=== PATIENT | female | born 1970 | race African-American/Black ===

== ENCOUNTER 2019-12-11 07:00 | Day surgery (SDC) | payer OTHER ==
[2019-12-11] VITALS (11 sets, daily range): BP systolic 91–155; BP diastolic 58–116
[~2019-12-11] VITALS: Ht 160 cm; Wt 91.6 kg
[~2019-12-11 07:00] MED LIST: ASPIRIN81 MG ORAL; HYDROCHLOROTHIA25 MG ORAL; NORVASC10 MG ORAL; PERCOCET 2.5-31 EACH ORAL; ceFAZolin 1gm IVPB IVPB ONE; celeBREX 200mg Cap **SURGERY PATIENTS ONLY ORAL ONE; oxyCONTIN 10mg tab ORAL ONE
[2019-12-11] MEDS ORDERED: NS Irrig 1000ml ONE (07:01)
[2019-12-11] MEDS ORDERED: LR 1000ml ONE (07:01)
[2019-12-11] MEDS ORDERED: NS Irrig 2000ml IRRIG ONE (07:01)
--- NOTE | 2019-12-11 07:05 | Pre-Procedure Note/Attestation ---
Pre-Procedure Note/Attestation Complete Prior to Procedure Planned Procedure: right Procedure Narrative: rt knee scope acl reconstruction Indications for Procedure Pre-Operative Diagnosis: rt knee acl tear Attestation I attest that I discussed the nature of the procedure; its benefits; risks and complications; and alternatives (and the risks and benefits of such alternatives ), prior to the procedure, with the patient (or the patient's legal medical field representative). I attest that, if there was a reasonable possibility of needing a blood transfusion, the patient (or the patient's legal medical field representative) was given the [facility] standardized written summary, pursuant to the Christophe Tamara Blood Safety Act ([place] Health and Safety Code # 1645, as amended). I attest that I re-evaluated the patient just prior to the surgery and that there has been no change in the patient's H&P, except as documented below: none Jerald Silvestre MD Dec 11, 2019 07:05
[2019-12-11] MEDS ORDERED: HYDROcodone/Acetamin 5/325 tab ORAL PRN (07:15)
[2019-12-11] MEDS ORDERED: HYDROmorphone 1mg/ml Carpuject SUBQ PRN (07:15)
[2019-12-11] MEDS ORDERED: Tylenol #3 tab (300mg/30mg) ORAL PRN (07:15)
[2019-12-11] MEDS ORDERED: Midazolam 2mg/2ml Inj ONE ×2 (07:23→08:43)
[2019-12-11] MEDS ORDERED: fentaNYL 100 mcg/2 mL IV ONE (07:23)
[2019-12-11] MEDS ORDERED: Bupivacaine 0.25% Inj 30ml INJ ONE (07:35)
[2019-12-11] MEDS ORDERED: fentaNYL 100 mcg/2 mL IV PRN (07:45)
[2019-12-11] MEDS ORDERED: Bacitracin 50000 Units Vial ONE (07:57)
[2019-12-11] MEDS ORDERED: Bupivacaine w/Epi 0.5% 30ml Vial INJ ONE (07:57)
[2019-12-11] MEDS ORDERED: EPINEPHrine 1mg/1ml Amp ONE (08:05)
[2019-12-11] MEDS ORDERED: Lidocaine 1% Plain 30 ml INJ ONE (08:30)
[2019-12-11] MEDS ORDERED: Acetaminophen (Non formulary) 100 ML IV ONE (09:15)
--- NOTE | 2019-12-11 10:01 | Anethesia Preoperative Eval ---
Anesthesia Pre-op PMH/ROS General Date of Evaluation: Dec 11, 2019 Time of Evaluation: 09:00 Anesthesiologist: fatimah ASA Score: ASA 3 Mallampati Score Class I : Soft palate, uvula, fauces, pillars visible Class II: Soft palate, uvula, fauces visible Class III: Soft palate, base of uvula visible Class IV: Only hard plate visible Mallampati Classification: Class III Surgeon: Konrad Diagnosis: Right knee pain Surgical Procedure: ACL repair Anesthesia History: none Social History: smoking, current smoker Family History: no anesthesia problems Allergies: Coded Allergies: No Known Allergies (Unverified , 12/07/19) Medications: see eMAR Patient NPO?: Yes NPO Date: Dec 11, 2019 NPO Time: 00:01 Past Medical History Cardiovascular: Reports: HTN Pulmonary: Denies: asthma, COPD, SUZAN, other Gastrointestinal/Genitourinary: Denies: GERD, CRI, ESRD, other Neurologic/Psychiatric: Reports: depression/anxiety; Denies: dementia, CVA, TIA, other Endocrine: Denies: DM, hypothyroidism, steroids, other HEENT: Denies: cataract (L), cataract (R), glaucoma, RENO-SPARKS (L), RENO-SPARKS (R), other Hematology/Immune: Denies: anemia, DVT, bleeding disorder, other Musculoskeletal/Integumentary: Reports: OA Other: obesity Anesthesia Pre-op Phys. Exam Physician Exam Last Vital Signs Date Time Temp Pulse Resp B/P (MAP) Pulse Ox O2 Delivery O2 Flow Rate FiO2 12/11/19 08:16 Room Air 12/11/19 07:48 98.0 78 18 139/87 97 Constitutional: NAD Neurologic: CN 2-12 intact Cardiovascular: RRR Respiratory: CTA Gastrointestinal: S/NT/ND Airway Exam Mallampati Classification 3 Mallampati Score: Class III MO: full Neck: thick ROM: full Dentures: no upper, no lower Anesthesia Pre-op A/P Labs Urine Test Test 12/11/19 07:15 Urine HCG, Qualitative Negative (NEGATIVE) Studies Pre-op Studies: EKG - SR Risk Assessment & Plan Plan: General Status Change Before Surgery: No Pre-Antibiotics Drug: ancef Given Within 1 Hr of Incision: Yes Time Given: 08:45 Chela Taylor CRNA Dec 11, 2019 10:01
[2019-12-11] MEDS ORDERED: Metoclopramide 10mg/2ml Inj ONE (10:15)
[2019-12-11] MEDS ORDERED: Ropivacaine 5mg/ml Vial 20ml INJ ONE (10:15)
[2019-12-11] MEDS ORDERED: Ketorolac 30mg Inj ONE (10:15)
[2019-12-11] MEDS ORDERED: Labetalol 5mg/ml 20ml vial IV PRN (10:15)
[2019-12-11] MEDS ORDERED: DiphenhydrAMINE 50mg/ml Inj IVP PRN (10:15)
[2019-12-11] MEDS ORDERED: Lidocaine 1% MPF 10mg/ml 5ml ONE (10:15)
[2019-12-11] MEDS ORDERED: Hydromorphone 0.5mg/0.5ml inj IVP PRN (10:15)
--- NOTE | 2019-12-11 10:41 | Brief Operative Note ---
Immediate Post Operative Note Operative Note Chief Complaint: rt knee pain Pre-op Diagnosis: rt knee acl tear Procedure: rt knee scope, acl reconstruction Post-op Diagnosis: same as pre-op Findings: consistent w/pre-op dx studies Surgeon: MD angelika Thread Pulling Machine Attendant: isabel Issa Anesthesiologist: md rubén Anesthesia: general Specimen: none Complications: none Condition: stable Fluids: ns Estimated Blood Loss: minimal Drains: none Implant(s) used?: Yes - biomet Lexii Issa Dec 11, 2019 10:41
--- NOTE | 2019-12-11 10:56 | Immediate Post-Op Evaluation ---
Immediate Post-Op Evalulation Immediate Post-Op Evalulation Procedure: ACL Repair Date of Evaluation: Dec 11, 2019 Time of Evaluation: 10:55 IV Fluids: 600 Blood Pressure Systolic: 140 Blood Pressure Diastolic: 50 Pulse Rate: 70 Respiratory Rate: 14 O2 Sat by Pulse Oximetry: 98 Nausea: No Vomiting: No Patient Status: awake, reacts, patent Hydration Status: adequate Drug: ancef Given Within 1 Hr of Incision: Yes Time Given: 08:45 Chela Taylor CRNA Dec 11, 2019 10:56
--- NOTE | 2019-12-11 12:37 | 48 Hour Post Anesthesia Eval ---
Post Anesthesia Evaluation Procedure: ACL Repair Date of Evaluation: Dec 11, 2019 Time of Evaluation: 12:37 Blood Pressure Systolic: 111 0: 74 Pulse Rate: 70 Respiratory Rate: 14 O2 Sat by Pulse Oximetry: 98 Airway: patent Nausea: No Vomiting: No Hydration Status: adequate Mental Status/LOC: patient returned to baseline Follow-up Care/Observations: none Post-Anesthesia Complications: none Follow-up care needed: N/A Chela Taylor CRNA Dec 11, 2019 12:37
[2019-12-11] MEDS ORDERED: D5 1/2NS 1,000 ML IV SCH (15:00)
--- NOTE | 2019-12-11 20:15 | Operative Note - Dictated ---
DATE OF OPERATION: 12/11/2019 PREOPERATIVE DIAGNOSIS: Right knee complete ACL tear. POSTOPERATIVE DIAGNOSIS: Right knee complete ACL tear with attachment onto the PCL for instability. PROCEDURE: 1. Right knee arthroscopy and extensive intra-articular shaving. 2. Right knee ACL reconstruction with tibialis anterior allograft, 10 mm graft with ToggleLoc femoral fixation and 10 mm AperFix tibial fixation. SURGEON: Jerald Silvestre MD. CT MRI TECHNOLOGIST: Lexii Issa PA-C. Physician Assistant Primary Care was present during the actual operative portion of the case and was important and essential part of the operation. During the operation, the child and youth program assistant held and operated the arthroscopic camera for visualization, assisted by manipulating the leg to help with visualization, and helped with essential parts of the repair process as necessary such as operating surgical instruments under surgeon supervision, suture management, and wound closures. ANESTHESIOLOGIST: Chela Taylor CRNA. ANESTHESIA: General endotracheal anesthesia. TOURNIQUET TIME: 50 minutes. ESTIMATED BLOOD LOSS: Minimal. COMPLICATIONS: None. SURGICAL INDICATION: Patient is a 49-year-old female who sustained the above injury to her knee. The patient was treated non-operative initially, but this did not alleviate the patients symptoms. Therefore, after discussing all non-surgical and surgical options, and discussing all foreseeable risk and benefits of surgery, the patient opted for surgical treatment as described above. PATIENT POSITIONING: Patient was brought to the operating room table and placed supine. All pressure points were well padded. General Anesthesia was induced and a well padded tourniquet was placed on the thigh. The lateral post was placed and positioned to allow for opening of the medial compartment of the knee without placing pressure over the fibular head. Patients entire leg was prepped and draped in the usual sterile fashion. Time out was performed and preop abx was given and after exsanguinating the lower extremity, the tourniquet was inflated to 275 mm of mercury. EXAMINATION OF THE KNEE UNDER ANESTHESIA: Before prepping and draping the knee and while the patient was relaxed under general anesthesia, the knee was examined for ROM, and anterior and posterior, medial and lateral, posterolateral, and posteromedial instability. Pivot shift testing was performed. There was no evidence of loss of motion, but there was instability with anterior drawer testing and Pivot shift testing. PORTAL PLACEMENT: The lateral portal was placed with the knee flexed to 90 degrees at the level of inferior border of the patella in line with the lateral border of the patella. A cm skin incision was made with an eleven blade, and using a blunt obturator, the capsule was gently penetrated. Sterile saline solution was then infused inside the knee with the aid of a pump set at 35 mm mercury pressure. Under direct visualization, placement of the medial portal was preliminary judged using a spinal needle, and it was subsequently established using the same technique as the lateral portal. Care was given not to injure the cutaneous branches of the medial Saphenous nerve or the subcutaneous veins. DIAGNOSTIC ARTHROSCOPY: The suprapatellar patellar pouch was visualized. There was no evidence of scar tissue or loose fragments. The medial and lateral patellar facets and trochlear groove articular cartilage was visualized. These structures were intact and were devoid of any articular cartilage damage. The medial plica shelf and the corresponding medial femoral condyle articular cartilage were visualized. There was no significantly thickening of the medial plica shelf and there were no kissing? lesion over the medial femoral condyle. The lateral gutter and the posterolateral corner of the knee were visualized. There were no loose bodies, and the popliteus tendon and other structures of the posterolateral corner of the knee were intact intra-articularly. At this point, the knee was placed in the figure of four position and the lateral compartment was entered. The lateral femoral condyle, lateral tibial plateau, and the anterior, body, and the posterior horn of the lateral meniscus were visualized and probed. The articular surfaces were intact and devoid of articular cartilage damage. The lateral meniscus was completely intact both on its undersurface and on the top. The knee was then placed at 90 degree and the ACL and PCL were visualized and probed. There was a complete tear of ACL and it was attached partially to the PCL. There was some scar tissue in the lateral wall, but there was no attachment of the ACL to the lateral wall. The PCL was completely intact on visualization and probing and it had excellent tension. The medial compartment was then entered and the medial femoral condyle, medial tibial plateau, and the anterior, body, and the posterior horn of the medial meniscus were visualized and probed. The articular surfaces were intact and devoid of articular cartilage damage. The medial meniscus was completely intact both on its undersurface and on the top. The medial gutter was visualized. There was no evidence of defect or loose fragments. The scope was then brought back to the patella femoral compartment. OPERATIVE ARTHROSCOPY: At this point, all loose debris and fragments were removed with the use of suction motorized shaver. Specific attention was given to assure all visible loose fragments were irrigated out of the knee joint with pump inflow and cannula outflow system. Pursuant to preoperative discussion with the patient, an allograft was used for ACL reconstruction. A 28 cm medium sized non-irradiated allograft was obtained from the tissue bank. The graft was defrosted in warm saline solution in its plastic wrapping. The graft was then cultured and subsequently placed in a triple antibiotic solution prior to handling. The graft was then trimmed to total length of 220 mm. The two ends of the graft were secured with #2 FiberWire sutures placed using modified Krackaw technique up to 25 mm proximal to each end. All slack was removed from the stitched portion and the graft was placed on a graft tensioner wrapped in antibiotic soaked sponges in a safe place on the back table. At this point the scope was removed and using a #15 blade, a 2 cm incision was made on the medial face of the tibia approximately at the level of the tibial tubercle. Using a tibial tunnel guide , the position of entry of the guide wire into the knee joint was approximated. The guide was placed on the foot print of previous ACL stump at the medial half of the intertubercle groove to allow the pin to enter the knee joint in the tibial anatomical footprint of the ACL. A guide wire was first placed and the tibial hole was then drilled using a drill. The tibial tunnel was then dilated up to 2 mm using standard dilators at millimeter increments up to the final size of 10 mm. Care was given not to fracture any portion of the tunnel during this process. Once this was completed, a 10 mm Femoral tunnel was drilled on the anatomical femoral attachment of the ACL, slightly laterally and inferiorly to the over the top position to allow for rotational stability. The femoral tunnel was drilled up to 35 mm deep. At this point, a Biomet ToggleLoc device was used for femoral fixation. A guide wire was passed thru the femoral tunnel and exited the lateral cortex of the femur and out of the soft tissue and grasp using a cocker. The 3.5 mm drill was used to drill the cortex and while the graft was loaded on the Toggle lock devise, it was then pulled up through the tibial tunnel into the joint and then into the femoral tunnel smoothly using the described technique and the metallic devise was flipped to allow security of the graft. The security of the graft was checked by pulling on the graft multiple times thru the femoral tunnel and assuring that the graft is firmly fixed. The graft was then tensioned by apply approximately 20 lb of traction and and cycling the knee 20 times through full flexion and extension to take out all of the looseness in the graft. At this point, the graft was stabilized in the tibial tunnel with a 10 mm AperFix device placed anterior to graft into the tibial tunnel. This was performed while keeping tension on the graft and applying a gentle posterior drawer to the knee. After completion of the fixation, anterior drawer and Steven testing were negative and pivot shift was not present. The scope was then placed back into the knee to visualize the graft. There was excellent position of the graft, and upon probing, the graft appeared to have excellent tension. Anterior drawer testing with scope in the knee revealed excellent stability. The knee was brought up to hyperextension and there was no evidence of graft impingement on the notch. CONDITION AT DISCHARGE FROM OPERATING ROOM: The knee was irrigated with copious amount of normal saline at the end of the procedure. The scope was removed and the water was drained. The skin edges were re-approximated and sterile dressing was applied. All lap count and instrument counts were correct. Patient tolerated the procedure well without complications and was taken to the recovery room in stable conditions. Jerald Silvestre M.D. DR: KIM JOB#: [id number] CC: [place]
== END 2019-12-11 14:00 | disposition home or self-care (01) ==
LOC: SUR 07:00
DX: S83.511A Sprain of anterior cruciate ligament of right knee, initial encounter (principal); X58.XXXA Exposure to other specified factors, initial encounter; Y92.9 Unspecified place or not applicable; F17.200 Nicotine dependence, unspecified, uncomplicated; I10 Essential (primary) hypertension; F32.9 Major depressive disorder, single episode, unspecified; F41.9 Anxiety disorder, unspecified; M19.90 Unspecified osteoarthritis, unspecified site; E66.9 Obesity, unspecified; Z68.35 Body mass index [BMI] 35.0-35.9, adult
CPT/HCPCS: 29888; 81025; 94003; C1776; J0131; J0171; J0690; J1170; J1885; J2250; J2405; J2704; J2765; J2795; J3010; J3490; J7120; 94150